=== PATIENT | male | born 1980 | race American Indian/Alaskan Native ===

== ENCOUNTER 2018-01-13 22:42 | Emergency (ER) | payer OTHER ==
[2018-01-13 23:58] LABS: Bilirubin,Urine NEG (Negative); Blood,Urine LG (Negative); Color,Urine Yellow (Yellow); Mucus,Urine 3+ /HPF; Sperm,Urine FEW /HPF (NP)
[2018-01-14 00:01] LABS: RBC,Urine > 182.0 /HPF (0.0-6.0)
[2018-01-14 00:04] LABS: Amphetamine Screen,Urine PRESUMPTIVE NEGATIVE; Benzodiazepines Screen,Urine PRESUMPTIVE NEGATIVE; Cannabinoid Screen,Urine PRESUMPTIVE NEGATIVE; Cocaine Screen,Urine PRESUMPTIVE NEGATIVE; Opiate Screen,Urine PRESUMPTIVE NEGATIVE
[2018-01-14 00:16] LABS: Methadone Screen,Urine PRESUMPTIVE POSITIVE
[2018-01-14 00:19] LABS: Basophils % (Auto) 0.2 % (0.0-1.8); Eosinophils % (Auto) 0.4 % (0.0-4.3); Hematocrit 44.9 % (35.5-45.6); Hemoglobin 14.7 gm/dl (11.8-15.2); Lymphocytes # (Auto) 2.2 K/mm3 (1.2-5.4); Lymphocytes % (Auto) 31.6 % (13.4-35.0); Mean Corpuscular HGB Conc 33 % (32-34); Mean Corpuscular Hemoglobin 27 pg (28-32); Mean Corpuscular Volume 83 fl (84-94); Monocytes # (Auto) 0.4 K/mm3 (0.0-0.8); Monocytes % (Auto) 5.6 % (0.0-7.3); Platelet Count 172 K/mm3 (140-440); Red Blood Count 5.43 M/mm3 (3.65-5.03); Red Cell Distribution Width 17.5 % (13.2-15.2)
[2018-01-14 00:35] LABS: BUN/Creatinine Ratio 13; Blood Urea Nitrogen 13 mg/dL (9-20); Calcium 9.6 mg/dL (8.4-10.2); Hemolysis Index 6
--- NOTE | 2018-01-14 01:13 | Emergency Department Report ---
ED Psych HPI - General Chief Complaint: Psych Stated Complaint: DEPRESSED,SAD Time Seen by Provider: 01/14/18 01:08 Source: patient Mode of arrival: Ambulatory - History of Present Illness Initial Comments: 37-year-old man with chronic depression, presents with long-standing history of depression, and recurrent thoughts of suicidal ideation, but this is apparently chronic, with symptoms present over the past year, generally situational, related to personal difficulties with girlfriend, as well as some financial issues, although patient has not reported any acute exacerbation, no sudden acceleration of conflict, no worsening of depression, and no particular plan for suicide. Report from nursing notes shows the patient has history of bipolar disorder, which patient does not report on his own. He had a prior suicide attempt approximately 5 years ago, had been managed with antidepressants afterwards, felt well, and ultimately stopped taking his antidepressant medication on his own. He does not follow with any routine mental health counselor or psychiatrist. Patient has not had any drug abuse, has no other medical issues to report, takes no other routine medications on his own. When asked about plan , patient has no distinct plan, and has not made any attempts recently. Onset/Timin -: Gradual, year(s) Associated Psychiatric Symptoms: depression Quality: intermittent, other (unchanged) Improves With: none Worsens With: none Associated Symptoms: denies other symptoms Treatments Prior to Arrival: none If Self Harm: admits thoughts of (vague history, primarily composed of thoughts of suicide, but no active plan, no increase in symptoms) - Related Data Home Medications Medication Instructions Recorded Confirmed Last Taken No Known Home Medications [No 01/13/18 01/13/18 Unknown Reported Home Medications] Allergies Allergy/AdvReac Type Severity Reaction Status Date / Time No Known Allergies Allergy Unverified 01/13/18 23:13 ED Review of Systems ROS: Stated complaint: DEPRESSED,SAD Other details as noted in HPI Comment: All other systems reviewed and negative Constitutional: denies: chills, fever Eyes: denies: eye pain, eye discharge, vision change ENT: denies: ear pain, throat pain Respiratory: denies: cough, shortness of breath, wheezing Cardiovascular: denies: chest pain, palpitations Endocrine: no symptoms reported Gastrointestinal: denies: abdominal pain, nausea, diarrhea Musculoskeletal: denies: back pain, joint swelling, arthralgia Skin: denies: rash, lesions Neurological: denies: headache, weakness, paresthesias Psychiatric: depression, suicidal thoughts ED Past Medical Hx - Past Medical History Hx Psychiatric Treatment: Yes (Bipolar, Schizophrenia, depression) - Surgical History Past Surgical History?: No - Social History Smoking Status: Current Every Day Smoker Substance Use Type: None, Marijuana - Medications Home Medications: Home Medications Medication Instructions Recorded Confirmed Last Taken Type No Known Home Medications [No 01/13/18 01/13/18 Unknown History Reported Home Medications] ED Physical Exam - General Limitations: No Limitations General appearance: alert, in no apparent distress - Head Head exam: Present: atraumatic - Eye Eye exam: Present: normal appearance, PERRL, EOMI - ENT ENT exam: Present: normal exam, mucous membranes dry - Neck Neck exam: Present: normal inspection, full ROM. Absent: tenderness, meningismus - Respiratory Respiratory exam: Present: normal lung sounds bilaterally. Absent: respiratory distress, wheezes, rales, rhonchi - Cardiovascular Cardiovascular Exam: Present: regular rate, normal heart sounds - GI/Abdominal GI/Abdominal exam: Present: soft. Absent: distended, tenderness, guarding, rebound - Rectal Rectal exam: Present: deferred - Back Exam Back exam: Present: normal inspection - Neurological Exam Neurological exam: Present: alert, oriented X3 - Psychiatric Psychiatric exam: Present: depressed, suicidal ideation - Skin Skin exam: Present: warm, dry, intact, normal color. Absent: rash ED Course Vital Signs 01/13/18 01/13/18 01/14/18 23:04 23:58 00:00 Temperature 98.7 F 98.6 F Pulse Rate 101 H 70 Respiratory 18 16 16 Rate Blood Pressure 122/96 Blood Pressure 138/67 [Left] O2 Sat by Pulse 98 99 99 Oximetry ED Medical Decision Making - Lab Data Result diagrams: 01/14/18 00:06 01/14/18 00:06 - Medical Decision Making Patient has fairly mild or low-grade symptomatology, but does report persistent feelings of wanting to commit suicide, and given this history, I believe he needs psychiatric evaluation. 1013 confinement orders placed, mental health consultation requested - Differential Diagnosis suicidal ideation, depression, bipolar disorder Critical Care Time: No Critical care attestation.: If time is entered above; I have spent that time in minutes in the direct care of this critically ill patient, excluding procedure time. ED Disposition Clinical Impression: Suicidal ideation Disposition: [id number]/[id number] PSY HOSP/PSY UNIT Is pt being admited?: No Does the pt Need Aspirin: No Condition: Stable Referrals: PRIMARY CARE, [Primary Care Provider] - 3-5 Days Time of Disposition: 03:39
--- NOTE | 2018-01-14 16:52 | Consultation ---
History of Present Illness - Reason for Consult Consult date: 01/14/18 Reason for consult: psychiatric evaluation - Chief Complaint Chief complaint: "I'm depressed and sad." - History of Present Psychiatric Illness Mr. Lomeli is a 37 yo AAM seen for psychiatric evaluation in the ER. He presented to the ER with complaints of depression and suicidal ideation. He reports auditory hallucinations telling him to "get help." He reports being diagnosed with bipolar disorder and schizophrenia in 2011 and was started on risperdal. He reports being on it for a long time and that it helped. He states he has been depressed since his mother in 2017. He lost his stable place to live and has been staying in hotels and with his girlfriend when she lets him. He states she uses him for money. They do not have children together. 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 He reports feeling hopeless and helpless. He reports difficulty going to sleep and a low appetite. He states he needs to cope with his mother's and have stability in his life. His urine drug screen is positive for methadone. He denies use of methadone. Medications and Allergies Allergies Allergy/AdvReac Type Severity Reaction Status Date / Time No Known Allergies Allergy Unverified 01/13/18 23:13 Home Medications Medication Instructions Recorded Confirmed Last Taken Type No Known Home Medications [No 01/13/18 01/13/18 Unknown History Reported Home Medications] Past psychiatric history - Past Medical History Past Medical History: No medical history Past Surgical History: No surgical history - past Psychiatric treatment and history Psych: Bipolar, Depression, Schizophrenia psychiatric treatment history: overdosed in 2017-never went to the hospital He reports being diagnosed with schizophrenia and bipolar in 2011. He went to [facility] at that time. He has a history of using cocaine, marijuana, and alcohol abuse. - Social History Social history: other (homeless. Stays in hotels and with his girlfriend when she allows him ) Mental Status Exam - Vital signs Last Vital Signs Temp 98.6 F 01/14/18 08:26 Pulse 82 01/14/18 08:26 Resp 20 01/14/18 08:26 BP 107/68 01/14/18 08:26 Pulse Ox 100 01/14/18 08:26 - Exam Orientation: time, place, person Affect: depressed Mood: congruent with affect Thought content: other (suicidal ideation. no homicidal ideation) Thought Process: Intact Perceptions: auditory, hallucinations ("get help") Speech: normal rate and pattern Concentration: focused Motor activity: normal Level of consciousness: alert Memory: Intact Sleep Symptoms: Difficulty Falling Asleep Appetite: decreased Interaction: cooperative Results Result Diagrams: 01/14/18 00:06 01/14/18 00:06 Abnormal lab results 01/14/18 01/14/18 01/14/18 Range/Units 00:06 00:06 00:06 RBC 5.43 H (3.65-5.03) M/mm3 MCV 83 L (84-94) fl MCH 27 L (28-32) pg RDW 17.5 H (13.2-15.2) % Salicylates < 0.3 L (2.8-20.0) mg/dL Acetaminophen < 5.0 L (10.0-30.0) ug/mL All other labs normal. Assessment and Plan Assessment and plan: Impression: Suicidal ideation and auditory hallucinations. Bipolar disorder, current episode depressed with psychotic features reported history of bipolar disorder and schizophrenia Recommendations: Start risperdal 1mg hs for mood and psychotic symptoms. He previously tolerated risperdal. Potential side effects/adverse effects discussed. He is agreeable. Continue 1013 and transfer to inpatient psychiatric facility once a bed is available.
[2018-01-14] MEDS: RisperDAL PO SCH (22:11)
--- NOTE | 2018-01-15 11:36 | Progress Note ---
Subjective - Reason for Consult Consult date: 01/15/18 Reason for consult: Psychiatry Follow-up - Chief Complaint Chief complaint: "I guess I'm getting better" 7 yo AAM seen for psychiatric evaluation in the ER. He presented to the ER with complaints of depression and suicidal ideation. Today the patient is calm, but withdrawn during the assessment. He stated that the voices are "decreasing." He stated that he "definitely" need help for his "mental state." He stated that he cannot explain why his mood is so "up and down." He would not confirm or deny SI 's, but denies HI's and VH's. He denies any side effects of his medication. Mental Status Exam - Vital signs Last Vital Signs Temp 98.2 F 01/14/18 21:42 Pulse 84 01/14/18 21:42 Resp 18 01/14/18 21:42 BP 118/84 01/14/18 21:42 Pulse Ox 99 01/14/18 21:42 - Exam Narrative exam: MSE: Appearance: calm Behavior: regular eye contact Speech: regular rate and tone Mood: withdrawn Affect: congruent to mood Thought Process: circumstantial Thought Content: denies HI's and VH's Motor Activity: lying in bed Cognition: A/O x 3 Insight: variable Judgment: variable Assessment and Plan Impression: Bipolar DO, current episode depressed with psychotic features. Today the patient is calm, but withdrawn during the assessment. DDx: R/O Schizoaffective DO Recommendations/Plan: Continue 1013 with placement to inpatient psy services. Continue Risperdal 1 mg PO HS for psychosis/mood. Discussed possible metabolic side effects of Risperdal with patient.
[2018-01-15] MEDS: RisperDAL PO SCH (22:40)
--- NOTE | 2018-01-16 09:40 | Progress Note ---
Subjective - Reason for Consult Consult date: 01/16/18 Reason for consult: Psychiatry Follow-up - Chief Complaint Chief complaint: "Hello" 7 yo AAM seen for psychiatric evaluation in the ER. He presented to the ER with complaints of depression and suicidal ideation. Today the patient is calm and cooperative during the assessment. He could not explain why he feel depressed and sad today when asked. He denies SI/HI's and AVH's. He denies any side effects of his medication. Mental Status Exam - Vital signs Last Vital Signs Temp 98.5 F 01/16/18 08:28 Pulse 108 H 01/16/18 08:28 Resp 16 01/16/18 08:28 BP 125/86 01/16/18 08:28 Pulse Ox 98 01/16/18 08:28 - Exam Narrative exam: MSE: Appearance: calm, cooperative Behavior: regular eye contact Speech: regular rate and tone Mood: withdrawn, sad Affect: congruent to mood Thought Process: circumstantial Thought Content: denies HI's and VH's Motor Activity: lying in bed Cognition: A/O x 3 Insight: variable Judgment: variable Assessment and Plan Impression: Bipolar DO, current episode depressed with psychotic features. Today the patient is calm and cooperative during the assessment. DDx: R/O Schizoaffective DO Recommendations/Plan: Continue 1013 with placement to [facility] pending transport time. Continue Risperdal 1 mg PO HS for psychosis/mood. Discussed possible metabolic side effects of Risperdal with patient.
[2018-01-16] MEDS: RisperDAL PO SCH (22:06)
[2018-01-17] MEDS: RisperDAL PO SCH (21:11)
[2018-01-18 12:24] VITALS: BP 119/72
== END 2018-01-18 10:05 ==
LOC: EEVIPCON 22:42 → ED 22:42
DX: F31.9 Bipolar disorder, unspecified (principal); F20.9 Schizophrenia, unspecified; F17.200 Nicotine dependence, unspecified, uncomplicated; F12.10 Cannabis abuse, uncomplicated; F11.10 Opioid abuse, uncomplicated; Z79.899 Other long term (current) drug therapy
CPT/HCPCS: 36415; 80048; 80307; 81001; 85025; 99285; G0480; 80320